=== PATIENT | female | born 1960 | race Caucasian/White ===

== ENCOUNTER 2017-10-07 10:53 | Outpatient (CLI) | payer OTHER | END 2017-10-07 11:00 | disposition home or self-care (01) | LOC: NUCLEAR 10:53 | DX: C73 Malignant neoplasm of thyroid gland (principal); E89.0 Postprocedural hypothyroidism | CPT/HCPCS: A9517; 79005 ==

== ENCOUNTER 2017-10-11 14:20 | Outpatient (CLI) | payer OTHER | END 2017-10-11 15:00 | disposition home or self-care (01) | LOC: NUCLEAR 14:20 | DX: C73 Malignant neoplasm of thyroid gland (principal); E89.0 Postprocedural hypothyroidism ==